=== PATIENT | male | born 1960 | race Caucasian/White ===

== ENCOUNTER 2017-03-10 07:57 | Emergency (ER) | payer SELFPAY ==
[2017-03-10 08:37] LABS: BASOPHILS % (AUTO) 0.7 % (0.0-5.0); EOSINOPHILS % (AUTO) 2.5 % (0.0-8.0); HEMATOCRIT 44.8 % (42-54); LYMPHOCYTES % (AUTO) 14.8 % (21.0-51.0); MEAN CORPUSCULAR HEMOGLOBIN 31.2 pg (27.0-33.0); MEAN CORPUSCULAR HGB CONC 33.2 g/dL (32.0-36.0); MEAN CORPUSCULAR VOLUME 94.1 fL (79-99); MONOCYTES % (AUTO) 8.6 % (3.0-13.0); NEUTROPHILS % (AUTO) 73.4 % (40.0-77.0); PLATELET COUNT (AUTO) 270 K/uL (130-400); RED BLOOD CELL COUNT(AUTO) 4.76 MIL/uL (4.50-6.20); RED CELL DISTRIBUTION WIDTH 14.3 % (11.0-15.5); WHITE BLOOD COUNT (AUTO) 7.7 K/uL (4.8-10.8)
[2017-03-10 08:45] LABS: CREATININE 1.2 mg/dL (0.5-1.5); POTASSIUM 4.1 mmol/L (3.5-5.1)
[2017-03-10 08:49] LABS: INR 0.98 (0.85-1.15); PARTIAL THROMBOPLASTIN TIME 24.5 SEC (26.3-35.5); PROTHROMBIN TIME 10.3 SEC (9.6-11.6)
[2017-03-10 08:51] LABS: ALBUMIN 3.1 g/dL (3.5-5.0); BILIRUBIN,TOTAL 0.2 mg/dL (0.2-1.0); TOTAL PROTEIN, SERUM 6.9 g/dL (6.0-8.3)
[2017-03-10 08:59] LABS: CREATINE KINASE MB < 0.5 ng/mL (0.5-3.6); CREATINE KINASE, TOTAL 100 U/L (21-232); MYOGLOBIN 44 ng/mL (10-92); TROPONIN I < 0.04 ng/mL (0.00-0.06)
[2017-03-10 09:40] LABS: ALCOHOL, BLOOD < 3 mg/dL (0-10)
[2017-03-10] MEDS ORDERED: GADOBENATE DIMEGLUMINE 20 ML IV ONE (11:27)
== END 2017-03-10 19:05 ==
LOC: EDH 07:57 → MERGE 07:57 → EDH 19:05
DX: R27.0 Ataxia, unspecified (principal); I10 Essential (primary) hypertension; Z72.0 Tobacco use
CPT/HCPCS: 36415; 70450; 70544; 70549; 70553; 80053; 82550; 82553; 83874; 84484; 85025; 85610; 85730; 93005; 99285; A9577; G0480

== ENCOUNTER 2018-07-13 22:05 | Emergency (ER) | payer OTHER ==
[2018-07-13] MEDS ORDERED: SODIUM CHLORIDE 0.9% 1000ML 1,000 ML IV ONE (22:34)
[2018-07-13 22:51] LABS: BASOPHILS % (AUTO) 1.3 % (0.0-5.0); HEMATOCRIT 40.3 % (42-54); LYMPHOCYTES % (AUTO) 20.8 % (21.0-51.0); MEAN CORPUSCULAR HEMOGLOBIN 31.3 pg (27.0-33.0); MEAN CORPUSCULAR HGB CONC 33.6 g/dL (32.0-36.0); NEUTROPHILS % (AUTO) 62.9 % (40.0-77.0); PLATELET COUNT (AUTO) 249 K/uL (130-400); RED BLOOD CELL COUNT(AUTO) 4.33 MIL/uL (4.50-6.20); RED CELL DISTRIBUTION WIDTH 14.1 % (11.0-15.5); WHITE BLOOD COUNT (AUTO) 9.1 K/uL (4.8-10.8)
[2018-07-13 23:01] LABS: CREATININE 1.5 mg/dL (0.5-1.5); POTASSIUM 4.2 mmol/L (3.5-5.1)
[2018-07-13 23:07] LABS: PARTIAL THROMBOPLASTIN TIME 29.4 SEC (26.3-35.5); PROTHROMBIN TIME 10.5 SEC (9.6-11.6)
[2018-07-13 23:13] LABS: ALBUMIN 3.7 g/dL (3.5-5.0); BILIRUBIN,TOTAL 0.5 mg/dL (0.2-1.0); MAGNESIUM 2.1 mg/dL (1.80-2.40); THYROID STIMULATING HORMONE 1.85 uIU/mL (0.36-3.74); TOTAL PROTEIN, SERUM 7.3 g/dL (6.0-8.3)
== END 2018-07-14 00:43 | disposition home or self-care (01) ==
LOC: EDH 22:05
DX: T50.995A Adverse effect of other drugs, medicaments and biological substances, initial encounter (principal); F43.9 Reaction to severe stress, unspecified; Y92.89 Other specified places as the place of occurrence of the external cause
CPT/HCPCS: 36415; 80053; 82550; 83605; 83735; 84443; 84484; 85025; 85610; 85730; 93005; 99285; J7030

== ENCOUNTER 2018-07-31 12:15 | Emergency (ER) | payer OTHER ==
[2018-07-31] MEDS ORDERED: KETOROLAC TROMETHAMINE 60 MG/2 ML VIAL ONE (12:40)
[2018-07-31] MEDS ORDERED: LIDOCAINE 5% TOPICAL PATCH TP ONE (12:41)
== END 2018-07-31 14:08 | disposition home or self-care (01) ==
LOC: EDH 12:15
DX: M54.5 Low back pain (principal); I10 Essential (primary) hypertension; Z87.891 Personal history of nicotine dependence
CPT/HCPCS: 96372; 99283; J1885

== ENCOUNTER 2024-11-16 08:10 | Emergency (ER) | payer BC ==
[~2024-11-16] VITALS: Ht 172.7 cm; Wt 88.0 kg
[2024-11-16] MEDS ORDERED: MELOXICAM 7.5 MG TABLET PO ONE (09:00)
[2024-11-16] MEDS ORDERED: MELO-108 PO (09:04)
--- NOTE | 2024-11-16 09:09 | ERN ---
General Chief Complaint: Lower Extremity Pain/Injury Stated Complaint: LEG PAIN Time Seen by MD: 08:21 History of Present Illness Initial Comments 64-year-old male who presents for left leg pain. Patient reports he has dealt this pain for years. He had a surgery in the past which did not relieve the pain. Pain goes from the pelvis area around his knee and into the ankle. He reports he gets flares up pain. No neurologic goal compromise neurovascularly intact. No other injuries. He reports he is having difficulty walking due to the pain. He is taking [id number] pain medicine. He went to his PCP, in his scheduled for an MRI soon. Allergies: Coded Allergies: tramadol (Unverified Allergy, Unknown, 07/31/18) Home Meds Active Scripts Hydrocodone/Acetaminophen (Hydrocodon-Acetaminophen 5-325) 5 Mg-325 Mg Tablet, 1 TAB PO TIDP PRN for pain for 10 Days, #20 TAB 0 Refills Prov:MARIBEL ALBERT DO 11/16/24 Meloxicam (Meloxicam) 15 Mg Tablet, 15 MG PO DAILYDINNER, #30 TAB Prov:KYLEIGH YIN MD 11/16/24 Past Medical History Past Medical History: No Pertinent History Past Surgical History: Other Surgical History Other: LEFT KNEE SURGERY ROS Dictation CONSTITUTIONAL: No chills, no fever, no weakness, no diaphoresis, no malaise. HEAD/FACE: No signs of trauma. EENT: No eye pain, no blurred vision, no tearing, no double vision, no ear pain, no ear discharge, no nose pain, no nasal congestion, no throat pain, no throat swelling, no mouth pain. RESPIRATORY: No cough, no orthopnea, no SOB, no stridor, no wheezing. CARDIOVASCULAR: No chest pain, no edema, no palpitations, no syncope. GASTROINTESTINAL/ABDOMINAL: No abdominal pain, no constipation, no diarrhea, no nausea, no vomiting. GENITOURINARY: No abnormal discharge, no dysuria, no frequent urination, no hematuria. No complaints of pain in the genitals. MUSCULOSKELETAL: Left leg pain INTEGUMENTARY: No change in color, no change in hair/nails, no dryness, no lesion, no lumps, no rash. NEUROLOGICAL/PSYCH: No anxiety, not depressed, no emotional problem, no headache, no numbness, no pre-existing deficit, no history of seizures, no tremors, no weakness. HEMATOLOGIC/LYMPHATIC: Not anemic, no history of blood clots, no apparent bleeding, no bruising, glands not swollen. All Systems Negative, Except as Noted. Physical Exam Physical Exam Dictation VITAL SIGNS: Reviewed. GENERAL APPEARANCE: Alert, oriented x3, no acute distress. HEAD AND FACE: Non-traumatic. EYES: PERRL, pink conjunctivas, eyelid no trauma, anterior chamber clear. EARS: Pinnas intact and no signs of trauma or erythema. Ear canals clear and no discharge. TMs no erythema. NOSE: No discharge, no bleeding. OROPHARYNX: Mouth normal, teeth no caries, tongue pink. Pharynx clear, no erythema. Tonsils no exudates, no abscesses noted. Mucous membrane moist. NECK: Supple, non-tender, no thyromegaly, no masses, no JVD, no bruits. BREAST: Deferred. CHEST: No tenderness, no crepitus, no paradoxical movement, no retractions. LUNGS: Clear, well-ventilated, symmetric, no rales, no wheezing, no rhonchi, no stridor, good breath sounds bilaterally. HEART: Regular rate, regular rhythm, no murmur, no gallops. VASCULAR: No peripheral edema. ABDOMEN: Soft, positive bowel sounds, nondistended, no guarding, nontender, no rebound, no masses no hepatomegaly, no splenomegaly, no Mi's sign, no hernias. RECTAL: Deferred. GENITAL: Deferred. NEUROLOGICAL: Normal speech, gross motor function intact, gross sensory function intact. MUSCULOSKELETAL: Neck nontender, full range of motion, back nontender, full range of motion. EXTREMITIES: Nontender, full range of motion. SKIN: Color pink, dry, no turgor, no rash, no lacerations, no abrasions, no contusions. LYMPHATICS: Deferred. MDM CC: Chronic left leg pain Historian: Patient Comorbidities: Chronic select leg problems possibly sciatic nerve injury Limitations by social determinants of health: None Differential diagnosis includes sciatica chronic pain versus other Patient recently had a DVT study. There has been that x-rays. We will not repeat. He is scheduled for an MRI. Patient is mostly here for pain control. He was given an IM Toradol and p.o. [place] in the ER. We will prescribe [place] tabs. We will recommend PCP follow up. ED Course Orders Procedure Category Date Status Time Meloxicam 7.5mg PHA 11/16/24 Complete (Mobic 7.5mg) 09:00 Ketorolac PHA 11/16/24 Complete Tromethamine 15mg/Ml 09:00 Current Medications Medications (Trade) Dose Ordered Sig/Jorge Route PRN Reason Start Time Stop Time Status Last Admin Dose Admin Ketorolac Tromethamine (toRADol) 15 mg ONCE ONCE IM 11/16/24 09:00 11/16/24 09:01 DC 11/16/24 09:46 Meloxicam (Mobic 7.5mg) 7.5 mg ONCE ONCE PO 11/16/24 09:00 11/16/24 09:00 DC Vital Signs Date Time Temp Pulse Resp B/P (MAP) Pulse Ox O2 Delivery O2 Flow Rate FiO2 11/16/24 09:30 98.1 81 20 114/71 97 Room Air* 0 21 11/16/24 08:23 98.1 68 20 114/78 98 Room Air* 0 21 11/16/24 08:11 98.1 71 16 104/71 98 Room Air DX & DISP Disposition: Discharge Departure Impression: Primary Impression: Joint impingement affecting neural tissue Condition: Stable Scripts Hydrocodone/Acetaminophen (Hydrocodon-Acetaminophen 5-325) 5 Mg-325 Mg Tablet 1 TAB PO TIDP PRN for pain for 10 Days, #20 TAB 0 Refills Prov: MARIBEL ALBERT DO 11/16/24 Meloxicam (Meloxicam) 15 Mg Tablet 15 MG PO DAILYDINNER, #30 TAB Prov: KYLEIGH YIN MD 11/16/24 Additional Instructions: You likely have a nerve impingement in left lower extremity. Please use the pain medication as prescribed and avoid heavy activity, and use ice or heat as needed for comfort. we prescribed meloxicam to reduce pain and inflammation. Take meloxicam with food and avoid other NSAIDs or alcohol while on this medication. Please follow up with your PCP in 3-5 days. Please follow up with outpatient orthopedic in 1-2 weeks. Referrals: JOSÉ LUIS SANTIAGO MD (PCP) CORNELIO SON MD ATTESTATION BY PHYSICIAN I have seen and examined the patient. I reviewed the documentation, medical decision making, and treatment plan as noted by the resident provider above. I agree with the findings and plan of care. MARIBEL ALBERT ADIL SHAH QUADRI MD Nov 16, 2024 09:09 MARIBEL ALBERT DO Nov 16, 2024 09:11
[2024-11-16] MEDS ORDERED: HYDR-4060 PO (09:10)
[2024-11-16 09:30] VITALS: BP 114/71; PULSE 81; RESP 20; TEMP 98.1; O2SAT 97
== END 2024-11-16 10:07 | disposition home or self-care (01) ==
LOC: EDH 08:10
DX: M25.80 Other specified joint disorders, unspecified joint (principal); Z79.899 Other long term (current) drug therapy; Z88.5 Allergy status to narcotic agent; Z98.890 Other specified postprocedural states
CPT/HCPCS: 99284; 96372; J1885